=== PATIENT | female | born 1995 | race Hispanic/Latino ===

== ENCOUNTER 2023-05-10 10:58 | Inpatient (IN) | payer MEDICAID ==
[~2023-05-10] VITALS: Ht 160 cm; Wt 92.6 kg
[2023-05-10 12:32] LABS: RAPID GROUP A STREP negative (NEGATIVE)
[2023-05-10 12:36] LABS: SARS-CoV-2, RNA, NAAT NEGATIVE SARS CoV-2 (NEGATIVE)
[2023-05-10 12:42] LABS: INFLUENZA TYPE A Negative For Type A (NEGATIVE); INFLUENZA TYPE B Negative For Type B (NEGATIVE)
[2023-05-10] MEDS ORDERED: DEXAMETHASONE SOD PHOSPHATE 4 MG/ML 1ML VIAL IVP ONE (13:00)
[2023-05-10] MEDS ORDERED: KETOROLAC 30MG VIAL (30MG/ML) IVP ONE (13:00)
[2023-05-10 13:04] LABS: BASOPHILS # (AUTO) 0.02 K/uL (0.00-0.20); BASOPHILS % (AUTO) 0.2 % (0.0-5.0); EOSINOPHILS # (AUTO) 0.02 K/uL (0.00-0.70); EOSINOPHILS % (AUTO) 0.2 % (0.0-8.0); HEMATOCRIT 41.8 % (36-48); IMMATURE GRANULOCYTE ABSOLUTE 0.03 K/uL (0-1); LYMPHOCYTES # (AUTO) 1.4 K/uL (1.0-4.8); LYMPHOCYTES % (AUTO) 14.6 % (21.0-51.0); MEAN CORPUSCULAR HEMOGLOBIN 25.3 pg (27.0-33.0); MEAN CORPUSCULAR VOLUME 76.6 fL (79-99); MONOCYTES # (AUTO) 0.9 K/uL (0.1-1.0); MONOCYTES % (AUTO) 8.9 % (3.0-13.0); NEUTROPHILS # (AUTO) 7.4 K/uL (1.8-7.7); NEUTROPHILS % (AUTO) 75.8 % (40.0-77.0); PLATELET COUNT (AUTO) 244 K/uL (130-400); RED BLOOD CELL COUNT(AUTO) 5.46 MIL/uL (4.00-5.50); RED CELL DISTRIBUTION WIDTH 13.3 % (11.0-15.5); WHITE BLOOD COUNT (AUTO) 9.8 K/uL (4.8-10.8)
[2023-05-10 13:17] LABS: ALBUMIN 3.5 g/dL (3.5-5.0); BILIRUBIN,TOTAL 1.2 mg/dL (0.2-1.0); CREATININE 0.7 mg/dL (0.5-1.5); POTASSIUM 3.6 mmol/L (3.5-5.1); TOTAL PROTEIN, SERUM 8.6 g/dL (6.0-8.3)
[2023-05-10] MEDS ORDERED: IOHEXOL 350 MG/ML 100ML INFUS..BTL IV ONE (13:53)
[2023-05-10] MEDS: CLINDAMYCIN IVPB 900MG/50ML 50 ML IV SCH ×2 (14:24→21:00)
[2023-05-10] MEDS ORDERED: GUAIFENESIN-DM 200/20 MG 10 ML PO PRN (16:30)
[2023-05-10] MEDS ORDERED: LACTULOSE 20 GM/30 ML UDCUP PO PRN (16:30)
[2023-05-10] MEDS ORDERED: MAG/ALUM/SIMETH 30 ML UDCUP PO PRN (16:30)
[2023-05-10] MEDS ORDERED: ONDANSETRON 4MG INJ IV PRN (16:30)
[2023-05-10] MEDS ORDERED: DIPHENHYDRAMINE HCL 25 MG CAPSULE PO PRN (16:30)
[2023-05-10] MEDS ORDERED: ACETAMINOPHEN 325 MG TAB PO PRN (16:30)
[2023-05-10] MEDS: LACTATED RINGERS 1000ML 1,000 ML IV SCH (16:42)
[2023-05-10] MEDS: CLINDAMYCIN IVPB 600MG/50ML 50 ML IV SCH (16:42)
[2023-05-10] MEDS: FAMOTIDINE 20MG VIAL IV SCH (21:00)
[2023-05-11] VITALS (7 sets, daily range): BP systolic 120–140; BP diastolic 72–95; PULSE 74–100; RESP 18–19; O2SAT 96–99
[2023-05-11] MEDS: CLINDAMYCIN IVPB 600MG/50ML 50 ML IV SCH ×3 (00:30→17:04)
[2023-05-11] MEDS: LACTATED RINGERS 1000ML 1,000 ML IV SCH ×2 (02:30→13:27)
[2023-05-11] MEDS: CLINDAMYCIN IVPB 900MG/50ML 50 ML IV SCH (05:00)
[2023-05-11 09:05] LABS: BASOPHILS # (AUTO) 0.01 K/uL (0.00-0.20); BASOPHILS % (AUTO) 0.1 % (0.0-5.0); HEMATOCRIT 39.2 % (36-48); IMMATURE GRANULOCYTE ABSOLUTE 0.04 K/uL (0-1); LYMPHOCYTES % (AUTO) 12.2 % (21.0-51.0); MEAN CORPUSCULAR HEMOGLOBIN 25.5 pg (27.0-33.0); MEAN CORPUSCULAR HGB CONC 33.2 g/dL (32.0-36.0); MONOCYTES # (AUTO) 0.4 K/uL (0.1-1.0); MONOCYTES % (AUTO) 5.4 % (3.0-13.0); NEUTROPHILS # (AUTO) 6.6 K/uL (1.8-7.7); NEUTROPHILS % (AUTO) 81.8 % (40.0-77.0); PLATELET COUNT (AUTO) 237 K/uL (130-400); RED BLOOD CELL COUNT(AUTO) 5.09 MIL/uL (4.00-5.50); RED CELL DISTRIBUTION WIDTH 13.2 % (11.0-15.5); WHITE BLOOD COUNT (AUTO) 8.1 K/uL (4.8-10.8)
[2023-05-11 09:18] LABS: BILIRUBIN,TOTAL 0.9 mg/dL (0.2-1.0); CREATININE 0.6 mg/dL (0.5-1.5); MAGNESIUM 2.1 mg/dL (1.80-2.40); POTASSIUM 3.7 mmol/L (3.5-5.1); TOTAL PROTEIN, SERUM 7.9 g/dL (6.0-8.3)
[2023-05-11] MEDS: FAMOTIDINE 20MG VIAL IV SCH ×2 (10:30→20:39)
[2023-05-12] VITALS (8 sets, daily range): BP systolic 107–140; BP diastolic 66–88; PULSE 67–83; RESP 18–20; O2SAT 98–100
[2023-05-12] MEDS: CLINDAMYCIN IVPB 600MG/50ML 50 ML IV SCH ×3 (00:45→16:46)
[2023-05-12] MEDS: LACTATED RINGERS 1000ML 1,000 ML IV SCH ×4 (00:45→16:46)
[2023-05-12] MEDS: MORPHINE 2 MG SYG IV PRN ×2 (02:42→06:24)
[2023-05-12 03:47] LABS: BASOPHILS # (AUTO) 0.03 K/uL (0.00-0.20); BASOPHILS % (AUTO) 0.4 % (0.0-5.0); EOSINOPHILS # (AUTO) 0.02 K/uL (0.00-0.70); EOSINOPHILS % (AUTO) 0.3 % (0.0-8.0); HEMATOCRIT 36.1 % (36-48); IMMATURE GRANULOCYTE ABSOLUTE 0.03 K/uL (0-1); LYMPHOCYTES # (AUTO) 2.1 K/uL (1.0-4.8); LYMPHOCYTES % (AUTO) 28.1 % (21.0-51.0); MEAN CORPUSCULAR HEMOGLOBIN 25.4 pg (27.0-33.0); MEAN CORPUSCULAR HGB CONC 32.1 g/dL (32.0-36.0); MEAN CORPUSCULAR VOLUME 79.2 fL (79-99); MONOCYTES # (AUTO) 0.8 K/uL (0.1-1.0); MONOCYTES % (AUTO) 10.4 % (3.0-13.0); NEUTROPHILS # (AUTO) 4.5 K/uL (1.8-7.7); NEUTROPHILS % (AUTO) 60.4 % (40.0-77.0); PLATELET COUNT (AUTO) 211 K/uL (130-400); RED BLOOD CELL COUNT(AUTO) 4.56 MIL/uL (4.00-5.50); RED CELL DISTRIBUTION WIDTH 13.4 % (11.0-15.5); WHITE BLOOD COUNT (AUTO) 7.4 K/uL (4.8-10.8)
[2023-05-12 04:06] LABS: CREATININE 0.7 mg/dL (0.5-1.5); MAGNESIUM 1.7 mg/dL (1.80-2.40); PHOSPHORUS 3.8 mg/dL (2.5-4.9); POTASSIUM 3.3 mmol/L (3.5-5.1)
[2023-05-12] MEDS: FAMOTIDINE 20MG VIAL IV SCH ×2 (09:10→22:02)
[2023-05-12] MEDS ORDERED: LIDOCAINE 1%-EPI 1:100,000 20 ML VIAL IJ SCH (21:00)
[2023-05-12] MEDS: MORPHINE 4 MG SYG IV PRN (22:05)
[2023-05-13] MEDS: CLINDAMYCIN IVPB 600MG/50ML 50 ML IV SCH ×2 (00:33→09:28)
[2023-05-13 04:10] LABS: BASOPHILS # (AUTO) 0.02 K/uL (0.00-0.20); BASOPHILS % (AUTO) 0.3 % (0.0-5.0); EOSINOPHILS # (AUTO) 0.02 K/uL (0.00-0.70); EOSINOPHILS % (AUTO) 0.3 % (0.0-8.0); HEMATOCRIT 39.9 % (36-48); IMMATURE GRANULOCYTE ABSOLUTE 0.03 K/uL (0-1); LYMPHOCYTES # (AUTO) 1.9 K/uL (1.0-4.8); MEAN CORPUSCULAR HEMOGLOBIN 25.5 pg (27.0-33.0); MEAN CORPUSCULAR HGB CONC 32.3 g/dL (32.0-36.0); MEAN CORPUSCULAR VOLUME 78.9 fL (79-99); MONOCYTES # (AUTO) 0.5 K/uL (0.1-1.0); MONOCYTES % (AUTO) 8.7 % (3.0-13.0); NEUTROPHILS # (AUTO) 3.4 K/uL (1.8-7.7); NEUTROPHILS % (AUTO) 58.2 % (40.0-77.0); PLATELET COUNT (AUTO) 243 K/uL (130-400); RED BLOOD CELL COUNT(AUTO) 5.06 MIL/uL (4.00-5.50); RED CELL DISTRIBUTION WIDTH 13.3 % (11.0-15.5); WHITE BLOOD COUNT (AUTO) 5.9 K/uL (4.8-10.8)
[2023-05-13 04:20] VITALS: PULSE 79; RESP 18
[2023-05-13 04:20] LABS: CREATININE 0.7 mg/dL (0.5-1.5); POTASSIUM 3.6 mmol/L (3.5-5.1)
[2023-05-13 04:25] VITALS: BP 141/88; PULSE 82
[2023-05-13 08:00] VITALS: BP 111/68; PULSE 73; RESP 17
[2023-05-13 08:05] VITALS: O2SAT 98
[2023-05-13] MEDS: FAMOTIDINE 20MG VIAL IV SCH (09:28)
[2023-05-13] MEDS: LACTATED RINGERS 1000ML 1,000 ML IV SCH (09:30)
[2023-05-13] MEDS: MORPHINE 4 MG SYG IV PRN (11:02)
[2023-05-13 12:00] VITALS: BP 118/93; PULSE 91; RESP 18
[2023-05-13] MEDS ORDERED: PRED20TA3 PO (12:03)
== END 2023-05-13 13:15 | disposition home or self-care (01) | DRG 113 ==
LOC: EDH 10:58 → EDHIP 10:59 → UNDOADMIN 16:10 → 4BH 23:21 → EDHIP 23:21
PROVIDERS: ADMIT Hospitalist; ATTEND Hospitalist
PROC: 0C9PXZZ Drainage of Tonsils, External Approach (ICD-10-PCS; principal; 2023-05-10)
DX: J36 Peritonsillar abscess (principal); B27.80 Other infectious mononucleosis without complication; J32.0 Chronic maxillary sinusitis; E66.9 Obesity, unspecified; Z20.822 Contact with and (suspected) exposure to COVID-19; H92.02 Otalgia, left ear; Z68.36 Body mass index [BMI] 36.0-36.9, adult; Z88.0 Allergy status to penicillin
CPT/HCPCS: 10060; 36415; 70491; 71046; 80048; 80053; 83735; 84100; 84145; 85025; 86308; 87040; 87071; 87077; 87186; 87635; 87804; 87880; C9803; G0378; J1100; J1885; J2270; J3490; J7120; Q9967